=== PATIENT | male | born 1965 | race Caucasian/White ===

== ENCOUNTER 2019-02-13 19:30 | Emergency (ER) | payer MEDICARE, OTHER ==
[~2019-02-13] VITALS: Ht 185.4 cm; Wt 104.3 kg
[2019-02-13] MEDS ORDERED: NS IV 1000 ML 1,000 ML IV SCH (19:36)
--- NOTE | 2019-02-13 19:50 | NUR ---
pt speaking in 1 word phrases.
[2019-02-13 19:55] LABS: BASOPHILS % (AUTO) 1 % (0-10); EOSINOPHILS # (AUTO) 0.1 10^3/uL (0.0-0.3); EOSINOPHILS % (AUTO) 2 % (0-10); HEMATOCRIT 41 % (40-54); HEMOGLOBIN 14.3 G/DL (13.3-17.7); LYMPHOCYTES # (AUTO) 2.1 X 10^3 (1.0-4.0); LYMPHOCYTES % (AUTO) 27 % (12-44); MEAN CORPUSCULAR HEMOGLOBIN 32 PG (25-34); MEAN CORPUSCULAR HGB CONC 35 G/DL (32-36); MEAN CORPUSCULAR VOLUME 91 FL (80-99); MEAN PLATELET VOLUME 9.1 FL (7.4-10.4); MONOCYTES # (AUTO) 0.8 X 10^3 (0.0-1.0); MONOCYTES % (AUTO) 10 % (0-12); NEUTROPHILS # (AUTO) 4.9 X 10^3 (1.8-7.8); NEUTROPHILS % (AUTO) 61 % (42-75); PLATELET COUNT 286 10^3/uL (130-400); RED CELL DISTRIBUTION WIDTH 14.5 % (10.0-14.5)
[2019-02-13 20:00] LABS: BILIRUBIN,URINE NEGATIVE (NEGATIVE); CLARITY,URINE CLEAR; COLOR,URINE YELLOW; GLUCOSE, URINE (UA) NEGATIVE (NEGATIVE); KETONES,URINE NEGATIVE (NEGATIVE); LEUKOCYTE ESTERASE ,URINE NEGATIVE (NEGATIVE); NITRITE,URINE NEGATIVE (NEGATIVE); PH,URINE 6.5 (5-9); PROTEIN,URINE NEGATIVE (NEGATIVE); UROBILINOGEN,URINE NORMAL (NORMAL)
--- NOTE | 2019-02-13 20:02 | ED Neurological Problem ---
General Chief Complaint: Neurological Problems Stated Complaint: SEIZURE Nursing Triage Note: BROUGHT IN BY [facility] S/P SEIZURE Nursing Sepsis Screen: No Definite Risk Source: EMS Exam Limitations: other (PT IS NOT TALKING ON ARRIVAL, AND NO PRIOR VISITS HERE) History of Present Illness Date Seen by Provider: Feb 13, 2019 Time Seen by Provider: 19:28 Initial Comments PT ARRIVES VIA EMS FROM HOME --LIVES AT [facility] PT HAD SEIZURE LASTING "20 MINUTES" ACCORDING TO BYSTANDERS' REPORT TO EMS PT HAS KNOWN HISTORY OF SEIZURES AND TBI, ACCORDING TO NEIGHBOR'S REPORT TO EMS NO APPARENT INJURY PT IS NOT TALKING ON ARRIVAL, BUT HAS A MEDICAL CARD WITH HIM WHICH LISTS THE FOLLOWING" WERNECKE-KORSAKOFF DEMENTIA BRAIN BLEED CVA AMNESIA PTSD SEIZURES NEIGHBOR'S REPORT TO EMS WAS THAT PT HAS LEFT SIDED WEAKNESS NORMALLY, AND IS NORMALLY ALERT AND ORIENTED AND ABLE TO CARE FOR HIMSELF WAS REPORTED TO EMS BY NEIGHBORS THAT PT HAD JUST RETURNED TO APARTMENT AFTER EATING DINNER, WHEN HE BEGAN HAVING SEIZURE NO OTHER INFORMATION IS OBTAINABLE AT THIS TIME ABOUT THE INCIDENT PT IS AWAKE ON ARRIVAL, BUT NOT TALKING APPEARS SOMEWHAT LETHARGIC WHEN ASKED IF HE IS HURTING ANYWHERE, HE POINTS TO EPIGASTRIC AREA AND BOTH EYES, ALSO HOLDS UP HIS HANDS--PT HAS MACERATED/ERYTHEMATOUS AREAS BETWEEN FINGERS--APPEAR TO BE OLDER/CHRONIC, AND NOT FROM ANY INJURY TODAY PCP: PHILLIP MONTILLA--[facility]. Allergies and Home Medications Allergies Coded Allergies: Penicillins (Verified Allergy, Unknown, 02/13/19) cephalexin (Verified Allergy, Unknown, NAUSEA, 02/13/19) Home Medications Unable to Obtain Active Prescriptions or Reported Meds Review of Systems Review of Systems Constitutional: other (VERY MINIMAL INFORMATION FROM PT HE IS NOT TALKING ON ARRIVAL) Eyes: See HPI Gastrointestinal: see HPI Skin: see HPI Psychiatric/Neurological: See HPI Past Lnrzasr-Mmfoga-Cticek Hx Patient Social History Smoking Status: Unknown if Ever Smoked 2nd Hand Smoke Exposure: Yes Recent Foreign Travel: No Contact w/Someone Who Travel: No Recent Infectious Disease Expo: No Recent Hopitalizations: No Physical Abuse: No Sexual Abuse: No Mistreated: No Fear: No Immunizations Up To Date Tetanus Booster (TDap): Unknown Seasonal Allergies Seasonal Allergies: No Past Medical History Surgeries: Yes ("BRAIN") Respiratory: No Cardiac: No Neurological: Yes (WERNECKE-KORSAKOFF DEMENTIA; AMNESIA; TBI WITH INTRACRANIAL BLEED; CVA WITH LEFT SIDE WEAKNESS) Dementia, Seizure Disorder, Stroke, Traumatic Brain Injury Genitourinary: No Gastrointestinal: No Musculoskeletal: Yes Chronic Back Pain Endocrine: No HEENT: No Cancer: No Psychosocial: Yes PTSD Integumentary: No Blood Disorders: No Physical Exam Vital Signs Vital Signs - First Documented 02/13/19 19:30 Temp 98.7 Pulse 156 Resp 21 B/P (MAP) 104/88 (93) Pulse Ox 92 O2 Delivery Room Air Capillary Refill : Less Than 3 Seconds Height, Weight, BMI Height: 6'1.00" Weight: 230lbs. oz. 104.740328xn; BMI Method:Estimated General Appearance: WD/WN, no apparent distress, other (SOMEWHAT DROWSY, FLAT A FFECT. DOES NOT APPEAR TO BE IN ANY DISCOMFORT OR DISTRESS; PT IS FLUSHED AND WARM; + ODOR OF ETOH) HEENT: PERRL/EOMI, normal ENT inspection Neck: non-tender, full range of motion, supple, normal inspection Respiratory: chest non-tender, normal breath sounds, no respiratory distress, no accessory muscle use Cardiovascular: normal peripheral pulses, regular rate, rhythm, no edema, no JVD, no murmur Gastrointestinal: normal bowel sounds, soft, no organomegaly, no pulsatile mass, tenderness (MILD EPIGASTRIC TENDERNESS) Back: normal inspection Extremities: normal range of motion, no pedal edema, no calf tenderness, normal capillary refill, other (MACERATION/ERYTHEMA/FISSURING BETWEEN FINGERS AND ANTERIOR ASPECT OF WRISTS--APPEARS TO BE SUB - ACUTE/CHROINC --APPEAR TO BE EXCEMATOUS TYPE ERUPTION. NO SIGNF OF INFECTION. NO DRAINAGE, NO STREAKS. 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 SLIGHTLY SLOW MENTATION, BUT CAN FOLLOW SIMPLE COMMANDS, GROSS MOTOR AND SENSORY IS INTACT WITH SLIGHT LEFT SIDE WEAKNESS. ) Skin: warm/dry, tattoos/piercings (TATTOOS), other (FINGERS ABOVE. NO OTHER EXTERNAL EVIDENCE OF TRAUMA; FACE AND CHEST FLUSHED AND WARM.) Focused Exam Lactate Level 02/13/19 19:35: Lactic Acid Level 2.73*H Lactic Acid Level Laboratory Tests Test 02/13/19 19:35 Lactic Acid Level 2.73 MMOL/L (0.50-2.00) *H Progress/Results/Core Measures Results/Orders Lab Results Laboratory Tests Test 02/13/19 19:35 02/13/19 19:50 Range/Units White Blood Count 8.0 4.3-11.0 10^3/uL Red Blood Count 4.51 4.35-5.85 10^6/uL Hemoglobin 14.3 13.3-17.7 G/DL Hematocrit 41 40-54 % Mean Corpuscular Volume 91 80-99 FL Mean Corpuscular Hemoglobin 32 25-34 PG Mean Corpuscular Hemoglobin Concent 35 32-36 G/DL Red Cell Distribution Width 14.5 10.0-14.5 % Platelet Count 286 130-400 10^3/uL Mean Platelet Volume 9.1 7.4-10.4 FL Neutrophils (%) (Auto) 61 42-75 % Lymphocytes (%) (Auto) 27 12-44 % Monocytes (%) (Auto) 10 0-12 % Eosinophils (%) (Auto) 2 0-10 % Basophils (%) (Auto) 1 0-10 % Neutrophils # (Auto) 4.9 1.8-7.8 X 10^3 Lymphocytes # (Auto) 2.1 1.0-4.0 X 10^3 Monocytes # (Auto) 0.8 0.0-1.0 X 10^3 Eosinophils # (Auto) 0.1 0.0-0.3 10^3/uL Basophils # (Auto) 0.0 0.0-0.1 10^3/uL Prothrombin Time 12.2 12.2-14.7 SEC INR Comment 0.9 0.8-1.4 Activated Partial Thromboplast Time 29 24-35 SEC Sodium Level 140 135-145 MMOL/L Potassium Level 3.5 L 3.6-5.0 MMOL/L Chloride Level 103 98-107 MMOL/L Carbon Dioxide Level 24 21-32 MMOL/L Anion Gap 13 5-14 MMOL/L Blood Urea Nitrogen 12 7-18 MG/DL Creatinine 0.89 0.60-1.30 MG/DL Estimat Glomerular Filtration Rate > 60 BUN/Creatinine Ratio 13 Glucose Level 94 70-105 MG/DL Lactic Acid Level 2.73 *H 0.50-2.00 MMOL/L Calcium Level 9.4 8.5-10.1 MG/DL Corrected Calcium 9.2 8.5-10.1 MG/DL Magnesium Level 2.2 1.8-2.4 MG/DL Total Bilirubin 0.4 0.1-1.0 MG/DL Aspartate Amino Transf (AST/SGOT) 23 5-34 U/L Alanine Aminotransferase (ALT/SGPT) 13 0-55 U/L Alkaline Phosphatase 80 40-136 U/L Total Creatine Kinase 304 H 30-200 U/L Creatine Kinase MB 2.9 <6.6 NG/ML Troponin I < 0.028 <0.028 NG/ML B-Type Natriuretic Peptide 126.8 H <100.0 PG/ML Total Protein 7.0 6.4-8.2 GM/DL Albumin 4.2 3.2-4.5 GM/DL Amylase Level 30 25-125 U/L Lipase 39 8-78 U/L TSH [place] Testing 1.67 0.35-4.94 UIU/ML Acetaminophen Level < 10 L 10-30 UG/ML Serum Alcohol 36 H <10 MG/DL Urine Color YELLOW Urine Clarity CLEAR Urine pH 6.5 5-9 Urine Specific [place] 1.010 L 1.016-1.022 Urine Protein NEGATIVE NEGATIVE Urine Glucose (UA) NEGATIVE NEGATIVE Urine Ketones NEGATIVE NEGATIVE Urine Nitrite NEGATIVE NEGATIVE Urine Bilirubin NEGATIVE NEGATIVE Urine Urobilinogen NORMAL NORMAL MG/DL Urine Leukocyte Esterase NEGATIVE NEGATIVE Urine RBC (Auto) 1+ H NEGATIVE Urine RBC RARE /HPF Urine WBC NONE /HPF Urine Squamous Epithelial Cells RARE /HPF Urine Crystals NONE /LPF Urine Bacteria NEGATIVE /HPF Urine Casts NONE /LPF Urine Mucus NEGATIVE /LPF Urine Culture Indicated NO Urine Opiates Screen NEGATIVE NEGATIVE Urine Oxycodone Screen NEGATIVE NEGATIVE Urine Methadone Screen NEGATIVE NEGATIVE Urine Propoxyphene Screen NEGATIVE NEGATIVE Urine Barbiturates Screen NEGATIVE NEGATIVE Ur Tricyclic Antidepressants Screen NEGATIVE NEGATIVE Urine Phencyclidine Screen NEGATIVE NEGATIVE Urine Amphetamines Screen NEGATIVE NEGATIVE Urine Methamphetamines Screen NEGATIVE NEGATIVE Urine Benzodiazepines Screen NEGATIVE NEGATIVE Urine Cocaine Screen NEGATIVE NEGATIVE Urine Cannabinoids Screen NEGATIVE NEGATIVE My Orders Orders - MARTINEZ AVENDAÑO DO Ed Iv/Invasive Line Start (02/13/19 19:36) Ekg Tracing (02/13/19 19:36) Monitor-Rhythm Ecg Trace Only (02/13/19 19:36) Ct Head Wo-R/O Stroke (02/13/19 19:36) Chest 1 View, Ap/Pa Only (02/13/19 19:36) Acetaminophen (02/13/19 19:36) Alcohol (02/13/19 19:36) Amylase (02/13/19 19:36) BNP (02/13/19 19:36) Cbc With Automated Diff (02/13/19:36) Comprehensive Metabolic Panel (02/13/19:36) Creatine Kinase (02/13/19 19:36) Creatine Kinase Mb (02/13/19 19:36) Drug Screen Stat (Urine) (02/13/19:36) Lactic Acid Analyzer (02/13/19:36) Lipase (02/13/19:36) Magnesium (02/13/19:36) Protime With Inr (02/13/19:36) Partial Thromboplastin Time (02/13/19:36) Thyroid Analyzer (02/13/19 19:36) Ua Culture If Indicated (02/13/19 19:36) Blood Culture (02/13/19 19:36) Troponin I (02/13/19 19:36) Ed Iv/Invasive Line Start (02/13/19 19:36) Ns Iv 1000 Ml (Sodium Chloride 0.9%) (02/13/19 19:36) Ed Iv/Invasive Line Start (02/13/19 20:57) Ns Iv 1000 Ml (Sodium Chloride 0.9%) (02/13/19 20:57) Ketorolac Injection (Toradol Injection) (02/13/19 20:57) Ketorolac Injection (Toradol Injection) (02/13/19 20:59) Medications Given in ED Current Medications Medications Dose Ordered Sig/Maria E Route Start Time Stop Time Status Last Admin Dose Admin Sodium Chloride 1,000 ml @ 0 mls/hr Q0M ONCE IV 02/13/19 20:57 02/13/19 22:00 DC 02/13/19 21:06 0 MLS/HR Vital Signs/I&O 02/13/19 02/13/19 19:30 20:17 Temp 98.7 98.7 Pulse 156 93 Resp 21 18 B/P (MAP) 104/88 (93) 123/78 Pulse Ox 92 97 O2 Delivery Room Air Blood Pressure Mean: 93 Progress Progress Note : Progress Note 2049--PT TALKING A LITTLE, STATE HE HURTS IN HIS HEAD, NECK AND BACK- --STATES NONE ARE NEW PT CANNOT GIVE ANY MEDICAL HISTORY FEMALE S.O. HERE NOW--STATES SHE IS HIS "FIANCE", STATES "BUT HE DOESN'T KNOW IT-HE DOESN'T REMEMBER". SHE IS A VERY POOR HISTORIAN ABOUT PMH, BUT DOES NOT RELATE THAT HIS MENTATION IS ANY DIFFERENT THAN NORMAL Initial ECG Impression Date: Feb 13, 2019 Initial ECG Impression Time: 19:37 Initial ECG Rate: 103 Initial ECG Rhythm: Normal Sinus Departure Impression Primary Impression: Seizure Additional Impressions: Alcohol abuse Noncompliance Disposition: HOME, SELF-CARE Condition: Improved Departure-Patient Inst. Patient Instructions: Seizures, Adult (DC), Alcohol Abuse and Alcoholism (DC) Add. Discharge Instructions: NO DRIVING FOR A MINIMUM OF 6 MONTHS AND YOU WILL NEED A RELEASE FROM YOUR NEURO LOGIST BEFORE YOU CAN HAVE DRIVING PRIVILEGES RE-INSTATED GET BACK ON YOUR MEDICATIONS AND TAKE THEM PRESCRIBED NO ALCOHOL LOTS OF FLUIDS FOLLOW UP WITH YOUR DR TOMORROW OR SUNDAY FOR FURTHER CARE RETURN TO ER IF PROBLEMS All discharge instructions reviewed with patient and/or family. Voiced understanding. Scripts Unable to Obtain Active Prescriptions or Reported Meds MARTINEZ AVENDAÑO DO Feb 13, 2019 20:02
[2019-02-13 20:07] LABS: BACTERIA,URINE NEGATIVE /HPF; RBC,URINE RARE /HPF; SQUAMOUS EPITHELIAL CELL,UR RARE /HPF
[2019-02-13 20:09] LABS: INR 0.9 (0.8-1.4); PROTHROMBIN TIME PATIENT 12.2 SEC (12.2-14.7)
[2019-02-13 20:14] LABS: ALANINE AMINOTRANSFERASE 13 U/L (0-55); ALBUMIN 4.2 GM/DL (3.2-4.5); ALKALINE PHOSPHATASE 80 U/L (40-136); AMYLASE 30 U/L (25-125); BILIRUBIN,TOTAL 0.4 MG/DL (0.1-1.0); BUN/CREATININE RATIO 13; CALCIUM 9.4 MG/DL (8.5-10.1); CARBON DIOXIDE 24 MMOL/L (21-32); CHLORIDE 103 MMOL/L (98-107); CREATINE KINASE 304 U/L (30-200); CREATININE SERUM 0.89 MG/DL (0.60-1.30); GFR ESTIMATED > 60; GLUCOSE 94 MG/DL (70-105); LIPASE 39 U/L (8-78); MAGNESIUM 2.2 MG/DL (1.8-2.4); POTASSIUM 3.5 MMOL/L (3.6-5.0); SODIUM 140 MMOL/L (135-145)
[2019-02-13 20:15] LABS: AMPHETAMINE SCREEN, URINE NEGATIVE (NEGATIVE); BARBITURATE SCREEN URINE NEGATIVE (NEGATIVE); BENZODIAZEPINES SCREEN URINE NEGATIVE (NEGATIVE); CANNABINOID SCREEN, URINE NEGATIVE (NEGATIVE); COCAINE SCREEN URINE NEGATIVE (NEGATIVE); METHADONE STAT NEGATIVE (NEGATIVE); METHAMPHETAMINE SCREEN URINE S NEGATIVE (NEGATIVE); OPIATE SCREEN URINE NEGATIVE (NEGATIVE); OXYCODONE STAT NEGATIVE (NEGATIVE); PROPOXYPHENE STAT NEGATIVE (NEGATIVE); TRICYCLIC ANTIDEPRESSANTS SCRE NEGATIVE (NEGATIVE)
[2019-02-13 20:17] LABS: ACETAMINOPHEN < 10 UG/ML (10-30)
--- NOTE | 2019-02-13 20:23 | Diagnostic Imaging Report ---
INDICATION: Seizures EXAMINATION: Chest 02/13/2019 Comparison made to 08/23/2007 FINDINGS: The cardiomediastinal silhouette is unremarkable. The pulmonary vasculature is within normal limits. The lungs and pleural spaces are clear. IMPRESSION: No evidence of an acute cardiopulmonary process. Dictated by: Dictated on workstation # [id number]
--- NOTE | 2019-02-13 20:27 | Diagnostic Imaging Report ---
INDICATION: Seizure, trouble forming thoughts. EXAMINATION: CT brain without contrast, 02/13/2019. FINDINGS: There is no hemorrhage or infarct. No mass, mass effect or midline shift. No hydrocephalus. A few scattered nonspecific low density areas are noted in the deep white matter, which are likely chronic. Specifically, there is a low-density area on image #17 of 32 which has a chronic appearance given its low density. Nonetheless, given patient's symptoms, perhaps an MRI with diffusion-weighted imaging could further evaluate this finding in any other possible abnormalities, if clinically indicated. The osseous structures demonstrate no evidence for acute abnormalities. IMPRESSION: Low densities areas scattered throughout the deep white matter. The most prominent one is in the right parietal lobe, image #17, which is fairly low in density suggesting chronicity; however, please see above discussion and if clinically indicated MRI could further evaluate. Dictated by: Dictated on workstation # [id number]
[2019-02-13 20:34] LABS: CREATINE KINASE MB 2.9 NG/ML (<6.6); TSH (THYROID ANALYZER) 1.67 UIU/ML (0.35-4.94)
[2019-02-13] MEDS ORDERED: KETOROLAC 30 MG/ML VIAL IVP STA (20:57)
[2019-02-13] MEDS ORDERED: NS IV 1000 ML 1,000 ML IV ONE (20:57)
[2019-02-13] MEDS ORDERED: KETOROLAC 30 MG/ML VIAL ONE (20:59)
[2019-02-13 22:20] VITALS: BP 114/62
--- OUTSIDE RECORDS SUMMARY | 2019-02-14 13:27 | XMS REPORT | Continuity of Care Document ---
Author Author [facility] Organization [facility] Address Unknown Phone Unavailable Support Name Relationship Address Phone MARGRET ZALDIVAR M.D. Caregiver [address] [place] [address] ISMAEL CRAIN P.A.-C Caregiver [address] [place] [address] [employer] COORDINATOR Caregiver [address] [place], [place] [id number] KATHRYN GARSIA Next Of Kin [id number] NO ONE ELSE 07/22/14 [place], [place] [id number] Insurance Providers Payer Name Policy Number Subscriber Name Relationship [employer] [id number] Althea Garsia 01 Self / Same As Patient Advance Directives Directive Response Recorded Date/Time Patient Resuscitation Status Full Code 07/22/14 7:58am Problems No known problems or medical conditions. Medications Medication Dose Route Sig Days/Qty Instructions Order Date Discontinued Date Status Hydrocodone-Acetaminophen 1 Tab PO For Pain for pain 07/21/14 Active Social History Social History Problem Response Recorded Date/Time Smoking Status Current every day smoker 07/22/2014 7:58am Query Response Start Date Stop Date Smoking Status Current every day smoker Hospital Discharge Instructions No hospital discharge instructions. Plan of Care No plan of care. Functional Status Query Response Date Recorded Overall Activities Daily Living Ability/Staff Support Independ/No setup help July 22, 2014 7:58am Allergies, Adverse Reactions, Alerts Allergen Type Severity Reaction Status Last Updated Cephalexin Allergy Unknown Trouble breathing Active 07/21/14 Penicillins Allergy Unknown Trouble breathing Active 07/21/14 Immunizations Name Given Type Pneumonia Vaccine Received Yes Historical Had a Tetanus Toxoid Vaccination less than 10yrs ago Yes Historical Vital Signs Acute Vital Signs Vital Response Date/Time Blood Pressure 118/75 mm Hg Blood Pressure Mean 81 mm Hg Blood Pressure Mean 89 mm Hg Temperature (Fahrenheit) 97.9 degrees F (96.0 - 99.9) Temperature (Calculated Celsius) 36.06255 degrees C Temperature Source Oral Temp 97.9 degrees F (96.0 - 99.9) Temperature (Calculated Celsius) 36.80993 degrees C Pulse Pulse Rate (adult) 73 bpm (60 - 100) Pulse Rate (adult) 50 bpm (60 - 100) Respiratory Rate 18 breaths per minute (10 - 20) Respiratory Rate 14 bpm (10 - 20) Height (Feet) 6 ft Height (Inches) 2.0 in. Weight (Pounds) 241.6 lbs Height 6 ft 2 in Weight 241 lb Body Mass Index 31.0 kg/m^2 Results Test Source Date Result Interp. Ref. Range Comments Bedside Glucose July 22, 2014 8:01am 94 mg/dL N 70-120 Notify medical staff Procedures Procedure Status Date Provider(s) Decompression of subacromial space of shoulder with rotator cuff repair completed 07/22/14 MARGRET ZALDIVAR M.D.
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
--- OUTSIDE RECORDS SUMMARY | 2019-02-14 13:27 | XMS REPORT | Clinical Summary ---
Author Author Admin, [facility] Organization All Address Unknown Phone Unavailable Allergies, Adverse Reactions, Alerts Allergy Name Reaction Description Start Date Severity Status Provider Allergies Unknown Conditions or Problems Problem Name Problem Code Onset Date Status Entry Date Provider Comment Standard Description Annotate Problems Unknown Active Medication List Medication Instructions Start Date Stop Date Generic Name NDC Status Provider Patient Instruction ALPRAZOLAM 1 MG ORAL TABLET 1/2 - 1 p.o. TID prn nerves ALPRAZOLAM [id number] Active Loida Patel MD PhD Active
== END 2019-02-13 22:25 | disposition home or self-care (01) ==
LOC: EDUNIT# 19:30 → ER 19:31
DX: G40.909 Epilepsy, unspecified, not intractable, without status epilepticus (principal); F10.10 Alcohol abuse, uncomplicated; F03.90 Unspecified dementia, unspecified severity, without behavioral disturbance, psychotic disturbance, mood disturbance, and anxiety; F43.10 Post-traumatic stress disorder, unspecified; Z77.22 Contact with and (suspected) exposure to environmental tobacco smoke (acute) (chronic); Z88.0 Allergy status to penicillin; Z88.1 Allergy status to other antibiotic agents; Z86.73 Personal history of transient ischemic attack (TIA), and cerebral infarction without residual deficits; Z91.14 Patient's other noncompliance with medication regimen; Y90.9 Presence of alcohol in blood, level not specified
CPT/HCPCS: 36415; 70450; 71045; 80053; 80306; 80320; 80329; 81000; 82150; 82550; 82553; 83605; 83690; 83735; 83880; 84443; 84484; 85025; 85610; 85730; 87040; 93005; 93041; 96361; 96374